=== PATIENT | female | born 1965 | race Caucasian/White ===

== ENCOUNTER 2025-02-09 19:00 | Emergency (ER) | payer MEDICAID ==
[~2025-02-09] VITALS: Ht 180.3 cm; Wt 82.0 kg
[2025-02-09 19:03] VITALS: O2SAT 98
[2025-02-09] MEDS ORDERED: ONDANSETRON HCL 4MG/2ML INJ IV ONE (20:30)
[2025-02-09] MEDS ORDERED: MORPHINE SULFATE 4 MG/ML INJ (FOR IV/IM USE) IV ONE (20:30)
[2025-02-09] MEDS ORDERED: KETOROLAC 30MG/ML VIAL IV ONE (20:30)
[2025-02-09] MEDS: MORPHINE SULFATE 4 MG/ML INJ (FOR IV/IM USE) IV SCH (22:04)
[2025-02-09] MEDS: ONDANSETRON HCL 4MG/2ML INJ IV SCH (22:05)
[2025-02-09] MEDS: KETOROLAC 30MG/ML VIAL IV SCH (22:05)
[2025-02-09] MEDS ORDERED: IBUP-2028 MT (22:33)
[2025-02-09] MEDS ORDERED: HYDR-4001 MT (22:33)
[2025-02-09 23:23] VITALS: BP 113/72; PULSE 71; RESP 16; TEMP 36.8; O2SAT 99
== END 2025-02-09 23:40 | disposition home or self-care (01) ==
LOC: ER 19:00
DX: S42.351A Displaced comminuted fracture of shaft of humerus, right arm, initial encounter for closed fracture (principal); I10 Essential (primary) hypertension; Z95.5 Presence of coronary angioplasty implant and graft; Z79.899 Other long term (current) drug therapy; Z98.890 Other specified postprocedural states; X58.XXXA Exposure to other specified factors, initial encounter; Y93.89 Activity, other specified; Y92.89 Other specified places as the place of occurrence of the external cause; Y99.8 Other external cause status
CPT/HCPCS: 73060; 73090; 29105; 96374; 96375; 99284; J1885; J2405; J2270; Z7610; A6449; 29240; A4565